=== PATIENT | male | born 1965 | race Caucasian/White ===

== ENCOUNTER 2019-07-14 14:49 | Outpatient (CLI) | payer BC ==
--- NOTE | 2019-07-14 15:50 | RAD ---
RIGHT FOOT THRE VIEW 07/14/19 HISTORY: Foot pain. COMPARISON: None. FINDINGS: Bipartite medial hallux sesamoid. Callus formation on the media margin of the great toe metatarsophal angeal joint. Appears to be an accessory ossicle between the first and second metatarsal bases. No acute fracture or malalignment. IMPRESSION: No acute osseous abnormality. POS: CET
== END 2019-07-14 14:50 | disposition home or self-care (01) ==
LOC: NAV RAD 14:49
PROVIDERS: ATTEND Nurse Practitioner Adult Health
DX: M77.41 Metatarsalgia, right foot (principal)

== ENCOUNTER 2019-09-28 14:21 | Emergency (ER) | payer BC ==
--- NOTE | 2019-09-28 14:52 | RAD ---
Exam:3 views left foot HISTORY: Pain. COMPARISON: None FINDINGS: Lisfranc alignment is maintained. There are moderate degenerative changes in the first tars ometatarsal articulation. There appears be associated soft tissue swelling. No fracture, cortical irregularity or periosteal reaction. 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 No fracture. Associated soft t issue swelling.
== END 2019-09-28 15:45 | disposition home or self-care (01) ==
LOC: NAV ERS 14:21
DX: M79.672 Pain in left foot (principal); I10 Essential (primary) hypertension; F17.210 Nicotine dependence, cigarettes, uncomplicated; Z79.899 Other long term (current) drug therapy